=== PATIENT | male | born 1970 | race Asian ===

== ENCOUNTER 2016-11-28 12:23 | Emergency (ER) | payer OTHER ==
[~2016-11-28] VITALS: Ht 177.8 cm; Wt 120.2 kg
[2016-11-28] MEDS ORDERED: LISITAB PO (12:37)
[2016-11-28] MEDS ORDERED: LOSA50TA PO (12:37)
[2016-11-28] MEDS ORDERED: CLONIDINE0.3 MG PO (12:38)
[2016-11-28] MEDS ORDERED: METFTAB PO (12:57)
== END 2016-11-28 14:30 | disposition home or self-care (01) ==
LOC: ED 12:23
DX: R03.0 Elevated blood-pressure reading, without diagnosis of hypertension (principal); Z91.14 Patient's other noncompliance with medication regimen; R00.1 Bradycardia, unspecified
CPT/HCPCS: 36415; 81000; 93005; 99283

== ENCOUNTER 2017-11-06 16:59 | Emergency (ER) | payer OTHER ==
[~2017-11-06] VITALS: Ht 177.8 cm; Wt 76.7 kg
[~2017-11-06 16:59] MED LIST: CLONIDINE0.3 MG PO; LISITAB PO; LOSA50TA PO; METFTAB PO
[2017-11-06 18:26] LABS: PLATELET COUNT 232 K/uL (142-355)
[2017-11-06 18:36] LABS: POTASSIUM 3.6 mmol/L (3.6-5.2)
[2017-11-06 21:36] LABS: POTASSIUM 3.1 mmol/L (3.6-5.2)
[2017-11-06 22:21] VITALS: BP 146/86; TEMP 97.5
== END 2017-11-06 22:21 | disposition home or self-care (01) ==
LOC: ED 16:59
PROVIDERS: Family Medicine
DX: E11.69 Type 2 diabetes mellitus with other specified complication (principal); E87.8 Other disorders of electrolyte and fluid balance, not elsewhere classified; I10 Essential (primary) hypertension
CPT/HCPCS: 36415; 80048; 80053; 81000; 85027; 96361; 96365; 96372; 96374; 96375; 99284; J1815